=== PATIENT | female | born 1975 | race African-American/Black ===

== ENCOUNTER 2017-07-05 13:25 | Emergency (ER) | payer OTHER ==
[~2017-07-05] VITALS: Ht 162.6 cm; Wt 111.1 kg
[2017-07-05] MEDS ORDERED: IV NORMAL SALINE 1000ML BAG 1,000 ML IV SCH (15:03)
--- NOTE | 2017-07-05 15:09 | PHYS DOC ---
Past Medical History Past Medical History: Bronchitis, Hypertension, Hypothyroid Additional Past Medical Histor: MOOD DISORDER, ERYTHEMA MULTIFORME Past Surgical History: Cholecystectomy, Tubal ligation Additional Past Surgical Histo: PARTIAL HYSTERECTOMY, BILATERAL CARPAL TUNNEL SX Alcohol Use: None Drug Use: None Adult General Chief Complaint Chief Complaint: FLANK PAIN [facility] HPI Patient is a pleasant 42-year-old -[place] female 0-5 who does not have menstrual appears any longer secondary to partial hysterectomy and tubal ligation. She presents today with right lower quadrant abdominal pain that began 3-4 days ago. It is progressive and more localized in the right lower quadrant with subjective nausea without fever, chills or other symptoms. It is localized without radiation to the back or the other side of the abdomen. She denies any UTI symptoms, hematuria, urgency frequency or dysuria. She denies any travel outside the country isn't antibiotics or history of sexually transmitted diseases. Patient denies any vaginal bleeding or discharge. Denies any back pain, night sweats or weight loss. Patient also denies any chest pain, shortness of breath or other symptoms like peripheral edema or rashes. Patient is not had discomfort right lower quadrant in the past before. She has no gallbladder had a prior cholecystectomy such tubal ligation and a partial gastrectomy. She is allergic to Lipitor only pain is an 8 of 10 at this time. And is considered constant worse with position not changed with food or bowel movements. Review of Systems Review of Systems Constitutional: Denies fever or chills [] Eyes: Denies change in visual acuity, redness, or eye pain [] HENT: Denies nasal congestion or sore throat [] Respiratory: Denies cough or shortness of breath [] Cardiovascular: No additional information not addressed in HPI [] GI: Abdominal pain the right lower quadrant with nausea no vomiting diarrhea or bloody stools or constipation. : Denies dysuria or hematuria [] Musculoskeletal: Denies back pain or joint pain [] Integument: Denies rash or skin lesions [] Neurologic: Denies headache, focal weakness or sensory changes [] Endocrine: Denies polyuria or polydipsia [] Current Medications Current Medications Current Medications Medications (Trade) Dose Ordered Sig/Christoph Start Time Stop Time Status Last Admin Dose Admin Hydromorphone HCl (Dilaudid) 1 mg 1X ONCE 07/05/17 15:15 07/05/17 15:16 DC 07/05/17 15:30 1 MG Info (Do NOT chart on this entry -- for MONITORING) 1 each PRN DAILY PRN 07/05/17 15:15 07/07/17 15:14 Iohexol (Omnipaque 300 Mg/ml) 75 ml 1X ONCE 07/05/17 15:15 07/05/17 15:16 DC 07/05/17 16:25 75 ML Ondansetron HCl (Zofran) 4 mg 1X ONCE 07/05/17 15:15 07/05/17 15:16 DC 07/05/17 15:30 4 MG Sodium Chloride (Normal Saline Flush) 10 ml QSHIFT PRN 07/05/17 15:15 Allergies Allergies Allergies Coded Allergies Type Severity Reaction Last Updated Verified atorvastatin Allergy Intermediate Rash 07/05/17 Yes Physical Exam Physical Exam Vital signs recorded on the chart patient noted to be hypertensive which is chronic for patient. Constitutional: Well developed, well nourished, no acute distress, non-toxic appearance. [] HENT: Normocephalic, atraumatic, bilateral external ears normal, oropharynx moist, no oral exudates, nose normal. [] Eyes: PERRLA, EOMI, conjunctiva normal, no discharge. [] Neck: Normal range of motion, no tenderness, supple, no stridor. [] Cardiovascular:Heart rate regular rhythm, no murmur [] Lungs & Thorax: Bilateral breath sounds clear to auscultation [] Abdomen: Normal active bowel sounds with no guarding rebound or organomegaly. No Castorena's point tenderness to palpation. No Rovsing sign negative Orellana Plummer sign. She does have a positive McBurney's point tenderness to palpation Skin: Warm, dry, no erythema, no rash. [] Back: No tenderness, no CVA tenderness. [] Extremities: No tenderness, no cyanosis, no clubbing, ROM intact, no edema. [] Neurologic: Alert and oriented X 3, normal motor function, normal sensory function, no focal deficits noted. [] Psychologic: Affect normal, judgement normal, mood normal. [] Current Patient Data Vital Signs Vital Signs Date Time Temp Pulse Resp B/P (MAP) Pulse Ox O2 Delivery O2 Flow Rate FiO2 07/05/17 15:30 18 98 Room Air 10/16/17 13:47 98.2 62 151/95 (113) 98.2 Lab Values Laboratory Tests Test 07/05/17 13:30 07/05/17 15:40 Urine Collection Type Unknown Urine Color Yellow Urine Clarity Clear Urine pH 7.5 Urine Specific [place] 1.015 Urine Protein Negative mg/dL (NEG-TRACE) Urine Glucose (UA) Negative mg/dL (NEG) Urine Ketones (Stick) Negative mg/dL (NEG) Urine Blood Small (NEG) Urine Nitrite Negative (NEG) Urine Bilirubin Negative (NEG) Urine Urobilinogen Dipstick 1.0 mg/dL (0.2 mg/dL) Urine Leukocyte Esterase Small (NEG) Urine RBC 1-2 /HPF (0-2) Urine WBC Occ /HPF (0-4) Urine Squamous Epithelial Cells Many /LPF Urine Bacteria Few /HPF (0-FEW) Urine Mucus Mod /LPF Urine Trichomonas Present White Blood Count 6.5 x10^3/uL (4.0-11.0) Red Blood Count 4.14 x10^6/uL (3.50-5.40) Hemoglobin 13.6 g/dL (12.0-15.5) Hematocrit 39.7 % (36.0-47.0) Mean Corpuscular Volume 96 fL (79-100) Mean Corpuscular Hemoglobin 33 pg (25-35) Mean Corpuscular Hemoglobin Concent 34 g/dL (31-37) Red Cell Distribution Width 14.0 % (11.5-14.5) Platelet Count 238 x10^3/uL (140-400) Neutrophils (%) (Auto) 44 % (31-73) Lymphocytes (%) (Auto) 47 % (24-48) Monocytes (%) (Auto) 5 % (0-9) Eosinophils (%) (Auto) 3 % (0-3) Basophils (%) (Auto) 0 % (0-3) Neutrophils # (Auto) 2.8 x10^3uL (1.8-7.7) Lymphocytes # (Auto) 3.1 x10^3/uL (1.0-4.8) Monocytes # (Auto) 0.3 x10^3/uL (0.0-1.1) Eosinophils # (Auto) 0.2 x10^3/uL (0.0-0.7) Basophils # (Auto) 0.0 x10^3/uL (0.0-0.2) Sodium Level 140 mmol/L (136-145) Potassium Level 3.4 mmol/L (3.5-5.1) L Chloride Level 103 mmol/L (98-107) Carbon Dioxide Level 28 mmol/L (21-32) Anion Gap 9 (6-14) Blood Urea Nitrogen 11 mg/dL (7-20) Creatinine 0.9 mg/dL (0.6-1.0) Estimated GFR (Cockcroft-Gault) 83.1 BUN/Creatinine Ratio 12 (6-20) Glucose Level 83 mg/dL (70-99) Calcium Level 9.3 mg/dL (8.5-10.1) Total Bilirubin 0.9 mg/dL (0.2-1.0) Aspartate Amino Transferase (AST) 22 U/L (15-37) Alanine Aminotransferase (ALT) 26 U/L (14-59) Alkaline Phosphatase 41 U/L (46-116) L Creatine Kinase 360 U/L (26-192) H Creatine Kinase MB (Mass) 0.7 ng/mL (0.0-3.6) Creatine Kinase MB Relative Index 0.2 % (0-4) Troponin I Quantitative < 0.017 ng/mL (0.000-0.055) Total Protein 8.2 g/dL (6.4-8.2) Albumin 4.2 g/dL (3.4-5.0) Albumin/Globulin Ratio 1.1 (1.0-1.7) Lipase 173 U/L (73-393) Laboratory Tests 07/05/17 15:40 Laboratory Tests 07/05/17 15:40 EKG EKG []EKG timed 3:21 PM 07/05/2017 dosage heart rate of 52 which is sinus bradycardia with a PMD QRS there is no evidence of ST segment T-wave changes consistent with acute ischemia. Patient's NC intervals 180 which is normal QRS width is 80 which is normal QTC which is 370 which is normal. Aside heart rate this a normal EKG read by ok Radiology/Procedures Radiology/Procedures [] [facility] [address] [place] [address] IMAGING REPORT Signed PATIENT: NOE SHARIF ACCOUNT: [id number] : 1975 LOCATION: ER AGE: 42 SEX: F EXAM STATUS: REG ER ORD. PHYSICIAN: ADDY LUCAS MD REASON: right lower quadrant abdominal pain PROCEDURE: CT ABD PELV W/ IV CONTRST ONLY Indication right lower quadrant pain for 3 days. Axial images through the abdomen and pelvis were obtained. The examination was performed without oral contrast. Approximately 75 cc of Omnipaque 300 was administered intravenously. No prior imaging is available. The lung bases are clear. The liver and spleen appear unremarkable. Clips are noted in the gallbladder fossa. No pancreatic abnormality is seen. No adrenal or renal anomalies are seen. Acute finding in the abdomen is not apparent. In the pelvis the appendix is seen in the right lower quadrant and appears unremarkable. The right ovary is slightly enlarged. If ovarian pathology is clinically suspect ultrasound examination could be performed. No additional finding is seen. IMPRESSION: A definite acute or significant finding in the abdomen or pelvis is not seen. The right ovary appears slightly enlarged. If ovarian pathology is suspect and additional imaging evaluation is warranted an ultrasound examination could be performed. DICTATED and SIGNED BY: ALEKS SAHNI MD DATE: 07/05/171653 CC: ADDY LUCAS MD; NO PCP ~ Course & Med Decision Making Course & Med Decision Making Pertinent Labs and Imaging studies reviewed. (See chart for details) []My abdominal pain differential includes but not limited to ectopic , UTI, pyonephritis, cholecystitis, cholelithiasis, pancreatitis, appendicitis, small bowel obstruction, large bowel obstruction, diverticulosis, Diverticulum, intussusception, volvulus, irritable bowel disease, Crohn's or ulcerative colitis, considered upon arrival patient was given IV fluids antiemetics pain medications she'll belly exams while laboratory work is pending as well as CT abdomen and pelvis with IV contrast. Patient tells me that their symptoms given during CC are improved. Still waiting for radiology report of the CT abdomen and pelvis to replete. At this point time is now 4 PM laboratory work demonstrates no elevated white count, normal lipase normal LFTs and normal troponin with mild hypokalemia. Although not low enough to be causing symptoms. Time is now 5:[address] scan abdomen and pelvis shows no inter- abdominal pathology except a small right ovarian cyst. There is no evidence of appendicitis, small bowel section, UTI or pyonephritis at this time. Patient's urinalysis demonstrates slight with blood cells but also significant epithelial cells consistent with contaminant. We provided NSAIDs and pain medications for treatment of the suspected right ovarian cyst. There is no other obvious signs of appendicitis. Impression: Right lower abdominal pain likely secondary to right ovarian cyst. Patient given precautions about possible early appendicitis Dragon Disclaimer Dragon Disclaimer This electronic medical record was generated, in whole or in part, using a voice recognition dictation system. Departure Departure Impression: Primary Impression: Abdominal pain Additional Impression: Ovarian cyst Disposition: HOME, SELF-CARE Condition: IMPROVED Patient Instructions: Abdominal Pain, Ovarian Cyst Additional Instructions: My abdominal pain differential includes but not limited to ectopic , UTI, pyonephritis, cholecystitis, cholelithiasis, pancreatitis, appendicitis, small bowel obstruction, large bowel obstruction, diverticulosis, Diverticulum, intussusception, volvulus, irritable bowel disease, Crohn's or ulcerative colitis, considered upon arrival My discharge plan Follow up: In addition patient is asked to followup with their primary doctor, within a week for followup examination and to address patient's ongoing medical conditions. . Patient is advised that in the Emergency Department primary complaints are addressed and only in light of known signs and symptoms. Patient should return immediately to the emergency department if new signs and symptoms develop or patient's condition worsens in any way. At time of discharge patient was in stable condition and had verbalized understanding of the discharge instructions. Although there is no obvious evidence of appendicitis or intra-abdominal catastrophe at this time requiring surgical intervention or immediate medical management you could still develop these issues in the future. I would ask that you return immediately for any increasing symptoms question concerns. Scripts Naproxen (NAPROSYN) 500 Mg Tablet 1 TAB PO BID, #14 TAB 1 Refill Prov: ADDY LUCAS MD 07/05/17 Hydrocodone Bit/Acetaminophen (HYDROCODONE-APAP 5-325 ) 1 Each Tablet 1-2 TAB PO PRN Q6HRS Y for PAIN for 5 Days, #10 TAB 0 Refills Prov: ADDY LUCAS MD 07/05/17 Problem Qualifiers ADDY LUCAS MD Jul 05, 2017 15:09
[2017-07-05] MEDS ORDERED: 0.9 % SODIUM CHLORIDE 10 ML DISP.SYRIN. IV PRN (15:15)
[2017-07-05] MEDS ORDERED: HYDROmorphone 2 MG/ML VIAL IV ONE (15:15)
[2017-07-05] MEDS ORDERED: CONTRAST GIVEN MC PRN (15:15)
[2017-07-05] MEDS ORDERED: ONDANSETRON PF 4 MG/2 ML VIAL. IV ONE (15:15)
[2017-07-05] MEDS ORDERED: IOHEXOL 300 MG/ML 75 ML VIAL IV ONE (15:15)
[2017-07-05 15:25] LABS: BILIRUBIN,URINE NEGATIVE (NEG); GLUCOSE,URINE NEGATIVE (NEG); NITRITE,URINE NEGATIVE (NEG); PH,URINE 7.5; PROTEIN,URINE NEGATIVE (NEG-TRACE)
--- NOTE | 2017-07-05 15:45 | EKG ---
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
[2017-07-05 15:52] LABS: BASO % 0 % (0-3); EOS % 3 % (0-3); HEMATOCRIT 39.7 % (36.0-47.0); HEMOGLOBIN 13.6 g/dL (12.0-15.5); LYMPH # 3.1 x10^3/uL (1.0-4.8); LYMPH % 47 % (24-48); MEAN CORPUSCULAR HEMOGLOBIN 33 pg (25-35); MEAN CORPUSCULAR HGB CONC 34 g/dL (31-37); MEAN CORPUSCULAR VOLUME 96 fL (79-100); MONO % 5 % (0-9); NEUT % 44 % (31-73); PLATELET COUNT 238 x10^3/uL (140-400); RED BLOOD COUNT 4.14 x10^6/uL (3.50-5.40); WHITE BLOOD COUNT 6.5 x10^3/uL (4.0-11.0)
[2017-07-05 15:52] LABS: SQUAMOUS EPITHELIAL CELL,UR MANY /LPF
[2017-07-05 15:53] LABS: BACTERIA,URINE FEW /HPF (0-FEW); TRICHOMONAS,URINE PRESENT; WBC,URINE OCC /HPF (0-4)
[2017-07-05 16:04] LABS: CALCIUM 9.3 mg/dL (8.5-10.1); CREATININE 0.9 mg/dL (0.6-1.0); GFR 83.1; POTASSIUM 3.4 mmol/L (3.5-5.1)
[2017-07-05 16:06] LABS: ALBUMIN 4.2 g/dL (3.4-5.0); ALBUMIN/GLOBULIN RATIO 1.1 (1.0-1.7); TOTAL BILIRUBIN 0.9 mg/dL (0.2-1.0); TOTAL PROTEIN 8.2 g/dL (6.4-8.2)
[2017-07-05 16:14] LABS: CKMB MASS 0.7 ng/mL (0.0-3.6)
--- NOTE | 2017-07-05 17:08 | RAD ---
Indication right lower quadrant pain for 3 days. Axial images through the abdomen and pelvis were obtained. The examination was performed without oral contrast. Approximately 75 cc of Omnipaque 300 was administered intravenously. No prior imaging is available. The lung bases are clear. The liver and spleen appear unremarkable. Clips are noted in the gallbladder fossa. No pancreatic abnormality is seen. No adrenal or renal anomalies are seen. Acute finding in the abdomen is not apparent. In the pelvis the appendix is seen in the right lower quadrant and appears unremarkable. The right ovary is slightly enlarged. If ovarian pathology is clinically suspect ultrasound examination could be performed. No additional finding is seen. IMPRESSION: A definite acute or significant finding in the abdomen or pelvis is not seen. The right ovary appears slightly enlarged. If ovarian pathology is suspect and additional imaging evaluation is warranted an ultrasound examination could be performed.
[2017-07-05 17:15] VITALS: BP 154/85
[2017-07-05] MEDS ORDERED: NAPR500T PO (17:15)
[2017-07-05] MEDS ORDERED: HYDR-2758 PO (17:15)
== END 2017-07-05 17:36 | disposition home or self-care (01) ==
LOC: ER 13:25
DX: N83.201 Unspecified ovarian cyst, right side (principal); I10 Essential (primary) hypertension; E03.9 Hypothyroidism, unspecified; Z90.3 Acquired absence of stomach [part of]; Z90.49 Acquired absence of other specified parts of digestive tract; Z98.51 Tubal ligation status; Z90.711 Acquired absence of uterus with remaining cervical stump; Z88.8 Allergy status to other drugs, medicaments and biological substances
CPT/HCPCS: 36415; 74177; 80053; 81001; 82553; 83690; 84484; 85025; 87086; 93005; 96361; 96374; 96375; 99285; J1170; J2405; J7030; Q9967

== ENCOUNTER 2017-10-16 16:12 | Emergency (ER) | payer OTHER ==
[2017-10-16] MEDS: ONDANSETRON PF 4 MG/2 ML VIAL. IV ×2 (17:22)
[2017-10-16] MEDS: IV NORMAL SALINE 1000ML BAG 1,000 ML IV ×2 (17:22)
[2017-10-16] MEDS: MORPHINE SULFATE 10 MG/ML VIAL. IV ×2 (17:22)
[2017-10-16 17:51] LABS: INFLUENZA A PATIENT NEGATIVE (NEGATIVE); INFLUENZA B PATIENT NEGATIVE (NEGATIVE); OBC FLU VALID
== END 2017-10-16 19:43 | disposition home or self-care (01) ==
LOC: ER 16:12
DX: R50.9 Fever, unspecified (principal); R51 Headache; R05 Cough; R09.81 Nasal congestion; E03.9 Hypothyroidism, unspecified; I10 Essential (primary) hypertension; R11.2 Nausea with vomiting, unspecified; Z90.49 Acquired absence of other specified parts of digestive tract; Z98.51 Tubal ligation status; Z90.711 Acquired absence of uterus with remaining cervical stump; Z88.8 Allergy status to other drugs, medicaments and biological substances
CPT/HCPCS: 87804; 87804-59; 96361; 96374; 96375; 99285-25; J2270; J2405; J7030

== ENCOUNTER 2017-11-30 10:43 | Emergency (ER) | payer OTHER ==
[2017-11-30] MEDS: LIDO:MAALOX:DONNATAL 1:1:1 15 ML SINGLE DOSE SWSW (11:38)
[2017-11-30 12:01] LABS: NEGATIVE OBC STREP NEG; POSITIVE OBC STREP POS
== END 2017-11-30 11:42 | disposition home or self-care (01) ==
LOC: ER 10:43
DX: B00.2 Herpesviral gingivostomatitis and pharyngotonsillitis (principal); E03.9 Hypothyroidism, unspecified; I10 Essential (primary) hypertension; Z88.8 Allergy status to other drugs, medicaments and biological substances
CPT/HCPCS: 87070; 87880; 99283

== ENCOUNTER 2018-05-12 10:27 | Emergency (ER) | payer OTHER ==
[~2018-05-12] VITALS: Ht 162.6 cm; Wt 126.1 kg
[~2018-05-12 10:27] MED LIST: ACYC800T PO; HYDR-2758 PO; NAPR-683 PO
--- NOTE | 2018-05-12 10:41 | EKG ---
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
[2018-05-12] MEDS ORDERED: NITROGLYCERIN SUBLINGUAL 0.4 MG BOTTLE OF 25. SL PRN (10:45)
[2018-05-12] MEDS: ASPIRIN CHEWABLE 81 MG TABLET. PO ONE (11:05)
--- NOTE | 2018-05-12 11:10 | RAD ---
PORTABLE CHEST 1V History: CHEST PAIN Comparison: None. Findings: Single view of the chest is submitted. There is no infiltrate, pneumothorax, or effusion. The pericardial cardiac silhouette is within normal limits in size. Impression: 1. There is no evidence of acute cardiopulmonary disease. Electronically signed by: Vance Flores MD (05/12/2018 11:07 AM) [id number]
[2018-05-12 11:34] LABS: BASO % 0 % (0-3); EOS # 0.2 x10^3/uL (0.0-0.7); EOS % 4 % (0-3); HEMATOCRIT 34.7 % (36.0-47.0); LYMPH % 38 % (24-48); MEAN CORPUSCULAR HEMOGLOBIN 32 pg (25-35); MEAN CORPUSCULAR HGB CONC 35 g/dL (31-37); MEAN CORPUSCULAR VOLUME 93 fL (79-100); MONO # 0.2 x10^3/uL (0.0-1.1); MONO % 4 % (0-9); NEUT # 2.8 x10^3uL (1.8-7.7); NEUT % 53 % (31-73); PLATELET COUNT 219 x10^3/uL (140-400); RED BLOOD COUNT 3.72 x10^6/uL (3.50-5.40); RED CELL DISTRIBUTION WIDTH 12.3 % (11.5-14.5); WHITE BLOOD COUNT 5.3 x10^3/uL (4.0-11.0)
[2018-05-12 11:43] LABS: GFR 73.2; POTASSIUM 3.4 mmol/L (3.5-5.1)
[2018-05-12 11:45] LABS: PROTHROMBIN TIME PATIENT 12.6 SEC (11.7-14.0)
[2018-05-12 11:48] LABS: ALBUMIN 3.5 g/dL (3.4-5.0); ALBUMIN/GLOBULIN RATIO 0.9 (1.0-1.7); MAGNESIUM 1.7 mg/dL (1.8-2.4); TOTAL BILIRUBIN 0.6 mg/dL (0.2-1.0); TOTAL PROTEIN 7.2 g/dL (6.4-8.2)
[2018-05-12 11:53] LABS: D-DIMER 0.65 ug/mlFEU (0.00-0.50)
[2018-05-12] MEDS ORDERED: IOHEXOL 300 MG/ML 100ML VIAL. IV ONE (12:30)
[2018-05-12 12:38] LABS: BARBITURATES NEG (NEG); BENZODIAZEPINES NEG (NEG); CANNABINOIDS NEG (NEG); COCAINE NEG (NEG); METHADONE NEG (NEG); OPIATES NEG (NEG); PHENCYCLIDINE NEG (NEG)
[2018-05-12 12:41] LABS: AMPHETAMINE/METHAMPHETAMINE NEG (NEG)
[2018-05-12] MEDS ORDERED: CONTRAST GIVEN. MC PRN (12:45)
[2018-05-12] MEDS: KETOROLAC 60 MG/2 ML INJ. IM ONE (12:50)
[2018-05-12 12:56] LABS: CREATINE KINASE 271 U/L (26-192)
[2018-05-12] MEDS ORDERED: TRAM-48 PO (13:09)
--- NOTE | 2018-05-12 13:10 | PHYS DOC ---
Past Medical History Past Medical History: Bronchitis, High Cholesterol, Hypertension, Hypothyroid, Other Additional Past Medical Histor: MOOD DISORDER, ERYTHEMA MULTIFORME, HEADACHE Past Surgical History: Cholecystectomy, Tubal ligation, Other Additional Past Surgical Histo: PARTIAL HYSTERECTOMY, BILATERAL CARPAL TUNNEL SX Additional Information: Nonsmoker Alcohol Use: None Drug Use: None Adult General Chief Complaint Chief Complaint: CHEST PAIN [facility] HPI Patient is a 43 year old female who presents with complaining of chest pain. Patient complaining of substernal and right-sided chest pain intermittently for the last 1 week that usually happens several times a day without relation to activity or position as a sharp pain with addition to her back and associated with shortness of breath and dizziness without nausea, palpitation, fever and chills, cough and congestion. Patient states the pain lasts about 2 minutes and resolved spontaneously nose without taking any medication. Patient states her pain was more constant today and she decided to come to hospital. Patient had history of hypertension and dyslipidemia and family history of coronary artery disease without history of smoking or diabetes mellitus or previous heart attack. Patient rated her pain 7/10. Review of Systems Review of Systems Constitutional: Denies fever or chills [] Eyes: Denies change in visual acuity, redness, or eye pain [] HENT: Denies nasal congestion or sore throat [] Respiratory: Denies cough or shortness of breath [] Cardiovascular: No additional information not addressed in HPI [] GI: Denies abdominal pain, nausea, vomiting, bloody stools or diarrhea [] : Denies dysuria or hematuria [] Musculoskeletal: Denies back pain or joint pain [] Integument: Denies rash or skin lesions [] Neurologic: Denies headache, focal weakness or sensory changes [] Endocrine: Denies polyuria or polydipsia [] All other systems were reviewed and found to be within normal limits, except as documented in this note. Current Medications Current Medications Current Medications Medications (Trade) Dose Ordered Sig/Crhistoph Start Time Stop Time Status Last Admin Dose Admin Aspirin (Children'S Aspirin) 324 mg 1X ONCE 05/12/18 11:00 05/12/18 11:01 DC 05/12/18 11:05 324 MG Info (CONTRAST GIVEN -- Rx MONITORING) 1 each PRN DAILY PRN 05/12/18 12:45 05/12/18 13:36 DC Iohexol (Omnipaque 300 Mg/ml) 75 ml 1X ONCE 05/12/18 12:30 05/12/18 12:31 DC Ketorolac Tromethamine (Toradol Im) 60 mg 1X ONCE 05/12/18 12:45 05/12/18 12:46 DC 05/12/18 12:50 60 MG Nitroglycerin (Nitrostat) 0.4 mg PRN Q5MIN PRN 05/12/18 10:45 05/12/18 13:36 DC Allergies Allergies Allergies Coded Allergies Type Severity Reaction Last Updated Verified atorvastatin Allergy Intermediate Rash 07/05/17 Yes Physical Exam Physical Exam Constitutional: Well developed, well nourished, mild distress, non-toxic appearance. [] HENT: Normocephalic, atraumatic, oropharynx moist, no oral exudates, nose normal. [] Eyes: PERRLA, EOMI, conjunctiva normal, no discharge. [] Neck: Normal range of motion, no tenderness, supple, no stridor. [] Cardiovascular:Heart rate regular rhythm, no murmur [] Lungs & Thorax: Bilateral breath sounds clear to auscultation, reproducible substernal and right-sided chest pain [] Abdomen: Bowel sounds normal, soft, no tenderness, no masses, no pulsatile masses. [] Skin: Warm, dry, no erythema, no rash. [] Back: No tenderness, no CVA tenderness. [] Extremities: No tenderness, no cyanosis, no clubbing, ROM intact, no edema. [] Neurologic: Alert and oriented X 3, normal motor function, normal sensory function, no focal deficits noted. [] Psychologic: Affect normal, judgement normal, mood normal. [] Current Patient Data Vital Signs Vital Signs Date Time Temp Pulse Resp B/P (MAP) Pulse Ox O2 Delivery O2 Flow Rate FiO2 05/12/18 13:14 48 20 117/66 (83) 97 Room Air 05/12/18 10:30 98.6 98.6 Lab Values Laboratory Tests Test 05/12/18 11:20 05/12/18 12:12 White Blood Count 5.3 x10^3/uL (4.0-11.0) Red Blood Count 3.72 x10^6/uL (3.50-5.40) Hemoglobin 12.0 g/dL (12.0-15.5) Hematocrit 34.7 % (36.0-47.0) L Mean Corpuscular Volume 93 fL (79-100) Mean Corpuscular Hemoglobin 32 pg (25-35) Mean Corpuscular Hemoglobin Concent 35 g/dL (31-37) Red Cell Distribution Width 12.3 % (11.5-14.5) Platelet Count 219 x10^3/uL (140-400) Neutrophils (%) (Auto) 53 % (31-73) Lymphocytes (%) (Auto) 38 % (24-48) Monocytes (%) (Auto) 4 % (0-9) Eosinophils (%) (Auto) 4 % (0-3) H Basophils (%) (Auto) 0 % (0-3) Neutrophils # (Auto) 2.8 x10^3uL (1.8-7.7) Lymphocytes # (Auto) 2.0 x10^3/uL (1.0-4.8) Monocytes # (Auto) 0.2 x10^3/uL (0.0-1.1) Eosinophils # (Auto) 0.2 x10^3/uL (0.0-0.7) Basophils # (Auto) 0.0 x10^3/uL (0.0-0.2) Prothrombin Time 12.6 SEC (11.7-14.0) Prothrombin Time INR 1.0 (0.8-1.1) D-Dimer (Gabby) 0.65 ug/mlFEU (0.00-0.50) H Sodium Level 140 mmol/L (136-145) Potassium Level 3.4 mmol/L (3.5-5.1) L Chloride Level 106 mmol/L (98-107) Carbon Dioxide Level 27 mmol/L (21-32) Anion Gap 7 (6-14) Blood Urea Nitrogen 5 mg/dL (7-20) L Creatinine 1.0 mg/dL (0.6-1.0) Estimated GFR (Cockcroft-Gault) 73.2 BUN/Creatinine Ratio 5 (6-20) L Glucose Level 85 mg/dL (70-99) Calcium Level 9.0 mg/dL (8.5-10.1) Magnesium Level 1.7 mg/dL (1.8-2.4) L Total Bilirubin 0.6 mg/dL (0.2-1.0) Aspartate Amino Transferase (AST) 14 U/L (15-37) L Alanine Aminotransferase (ALT) 20 U/L (14-59) Alkaline Phosphatase 41 U/L (46-116) L Creatine Kinase 271 U/L (26-192) H Creatine Kinase MB (Mass) < 0.5 ng/mL (0.0-3.6) Creatine Kinase MB Relative Index % (0-4) Troponin I Quantitative < 0.017 ng/mL (0.000-0.055) PL-Bwc-Q-Type Natriuretic Peptide 63 pg/mL (0-124) Total Protein 7.2 g/dL (6.4-8.2) Albumin 3.5 g/dL (3.4-5.0) Albumin/Globulin Ratio 0.9 (1.0-1.7) L Lipase 144 U/L (73-393) Urine Opiates Screen Neg (NEG) Urine Methadone Screen Neg (NEG) Urine Barbiturates Neg (NEG) Urine Phencyclidine Screen Neg (NEG) Urine Amphetamine/Methamphetamine Neg (NEG) Urine Benzodiazepines Screen Neg (NEG) Urine Cocaine Screen Neg (NEG) Urine Cannabinoids Screen Neg (NEG) Urine Ethyl Alcohol Neg (NEG) Laboratory Tests 05/12/18 11:20 Laboratory Tests 05/12/18 11:20 EKG EKG EKG interpreted by me. EKG at 1035 showed normal sinus rhythm at rate of 62, abnormal TMs anteroseptal leads that was the same as EKG dated 07/19/2017, on acute ST and T-wave abnormalities.[] Radiology/Procedures Radiology/Procedures [[facility] [address] [place], [place] [id number] IMAGING REPORT Signed PATIENT: NOE SHARIF ACCOUNT: [id number] : 1975 LOCATION: ER AGE: 43 SEX: F EXAM STATUS: REG ER ORD. PHYSICIAN: WALLY GIBSON MD REASON: chest pain PROCEDURE: PORTABLE CHEST 1V PORTABLE CHEST 1V History: CHEST PAIN Comparison: None. Findings: Single view of the chest is submitted. There is no infiltrate, pneumothorax, or effusion. The pericardial cardiac silhouette is within normal limits in size. Impression: 1. There is no evidence of acute cardiopulmonary disease. Electronically signed by: Elder Flores MD (05/12/2018 11:07 AM) [id number] DICTATED and SIGNED BY: ELDER FLORES MD DATE: 05/12/18 1107 ] Course & Med Decision Making Course & Med Decision Making Pertinent Labs and Imaging studies reviewed. (See chart for details) Evolution of patient in ER showed 42-year-old female patient with complaining of intermittent episodes of substernal and right-sided chest pain. Patient did not have this factor for PE or dissection immobilization. She had reproducible right-sided chest pain and felt better after treatment in ER with Toradol. Patient had very mild elevation of d-dimer without concern for PE. Patient instructed to follow with her primary care physician and take pain medication prescribed in ER. [] Dragon Disclaimer Dragon Disclaimer This electronic medical record was generated, in whole or in part, using a voice recognition dictation system. Departure Departure Impression: Primary Impression: Musculoskeletal chest pain Additional Impressions: Hypomagnesemia Elevated liver enzymes D-dimer, elevated Disposition: 01 HOME, SELF-CARE (at 1307) Condition: IMPROVED Referrals: YANI ESPINOZA MD (PCP) Patient Instructions: Chest Wall Pain Additional Instructions: Drink plenty of liquids Follow-up with your primary care physician in 3-5 days Return to ER if not getting better Scripts Tramadol Hcl (ULTRAM) 50 Mg Tablet 50 MG PO Q6HRS PRN for PAIN, #20 TAB 0 Refills Prov: WALLY GIBSON MD 05/12/18 Problem Qualifiers WALLY GIBSON MD May 12, 2018 13:10
[2018-05-12 13:14] VITALS: BP 117/66
== END 2018-05-12 13:33 | disposition home or self-care (01) ==
LOC: ER 10:27
DX: R07.89 Other chest pain (principal); E83.42 Hypomagnesemia; R74.8 Abnormal levels of other serum enzymes; R79.1 Abnormal coagulation profile; E78.00 Pure hypercholesterolemia, unspecified; I10 Essential (primary) hypertension; E03.9 Hypothyroidism, unspecified; Z90.49 Acquired absence of other specified parts of digestive tract; Z90.710 Acquired absence of both cervix and uterus; Z98.51 Tubal ligation status; Z88.8 Allergy status to other drugs, medicaments and biological substances
CPT/HCPCS: 36415; 71045; 80053; 80307; 82553; 83690; 83735; 83880; 84484; 85025; 85379; 85610; 93005; 96372; 99285; J1885; G0479

== ENCOUNTER 2018-09-12 04:36 | Emergency (ER) | payer OTHER ==
[~2018-09-12] VITALS: Ht 162.6 cm; Wt 131.1 kg
[~2018-09-12 04:36] MED LIST changes: -HYDR-2758 PO; +HYDR-2761 PO; +TRAM-48 PO
--- NOTE | 2018-09-12 05:08 | PHYS DOC ---
Past Medical History Past Medical History: Bronchitis, High Cholesterol, Hypertension, Hypothyroid, Other Additional Past Medical Histor: MOOD DISORDER, ERYTHEMA MULTIFORME, HEADACHE Past Surgical History: Cholecystectomy, Tubal ligation, Other Additional Past Surgical Histo: PARTIAL HYSTERECTOMY, BILATERAL CARPAL TUNNEL SX Alcohol Use: None Drug Use: None Adult General Chief Complaint Chief Complaint: LOWER EXT PAIN HPI HPI Patient is a 43 year old female who presents with left lower extremity pain. This is been present for the past month. It was initially in the proximal lateral thigh but now has extended distally still in the lateral thigh. There is been no new leg swelling. No PE risk factors. No trauma. Patient is able to ambulate. Nothing seems to make the discomfort worse. Ibuprofen does seem to make it a little bit better. Pain is mild to moderate in intensity. There is no shortness of breath.[] Review of Systems Review of Systems Constitutional: Denies fever or chills [] Eyes: Denies change in visual acuity, redness, or eye pain [] HENT: Denies nasal congestion or sore throat [] Respiratory: Denies cough or shortness of breath [] Cardiovascular: No chest pain or palpitations[] GI: Denies abdominal pain, nausea, vomiting, bloody stools or diarrhea [] : Denies dysuria or hematuria [] Musculoskeletal: See history of present illness[] Integument: Denies rash or skin lesions [] Neurologic: Denies headache, focal weakness or sensory changes [] Endocrine: Denies polyuria or polydipsia [] All other systems were reviewed and found to be within normal limits, except as documented in this note. Current Medications Current Medications Current Medications Medications (Trade) Dose Ordered Sig/Christoph Start Time Stop Time Status Last Admin Dose Admin Ketorolac Tromethamine (Toradol 15mg Vial) 15 mg 1X ONCE 09/12/18 06:00 09/12/18 06:01 DC Ketorolac Tromethamine (Toradol Im) 15 mg 1X ONCE 09/12/18 06:00 09/12/18 06:00 DC Allergies Allergies Allergies Coded Allergies Type Severity Reaction Last Updated Verified atorvastatin Allergy Intermediate Rash 07/05/17 Yes Physical Exam Physical Exam Constitutional: Well developed, well nourished, no acute distress, non-toxic appearance. [] HENT: Normocephalic, atraumatic, bilateral external ears normal, oropharynx moist, no oral exudates, nose normal. [] Eyes: PERRLA, EOMI, conjunctiva normal, no discharge. [] Neck: Normal range of motion, no tenderness, supple, no stridor. [] Cardiovascular:Heart rate regular rhythm, no murmur [] Lungs & Thorax: Bilateral breath sounds clear to auscultation [] Abdomen: Bowel sounds normal, soft, no tenderness, no masses, no pulsatile masses. [] Skin: Warm, dry, no erythema, no rash. [] Back: No tenderness, no CVA tenderness. [] Extremities: tenderness of the lateral thigh. Full active range of motion. Patient is distal neurovascularly intact. Normal gait, no cyanosis, no clubbing , ROM intact, no edema. [] Neurologic: Alert and oriented X 3, normal motor function, normal sensory function, no focal deficits noted. [] Psychologic: Affect normal, judgement normal, mood normal. [] Current Patient Data Vital Signs Vital Signs Date Time Temp Pulse Resp B/P (MAP) Pulse Ox O2 Delivery O2 Flow Rate FiO2 09/12/18 04:57 98.6 78 18 170/76 (107) 100 Room Air 98.6 Lab Values Laboratory Tests Test 09/12/18 06:37 White Blood Count 4.9 x10^3/uL (4.0-11.0) Red Blood Count 3.84 x10^6/uL (3.50-5.40) Hemoglobin 12.9 g/dL (12.0-15.5) Hematocrit 36.6 % (36.0-47.0) Mean Corpuscular Volume 95 fL (79-100) Mean Corpuscular Hemoglobin 34 pg (25-35) Mean Corpuscular Hemoglobin Concent 35 g/dL (31-37) Red Cell Distribution Width 12.9 % (11.5-14.5) Platelet Count 263 x10^3/uL (140-400) Neutrophils (%) (Auto) 54 % (31-73) Lymphocytes (%) (Auto) 36 % (24-48) Monocytes (%) (Auto) 7 % (0-9) Eosinophils (%) (Auto) 2 % (0-3) Basophils (%) (Auto) 1 % (0-3) Neutrophils # (Auto) 2.6 x10^3uL (1.8-7.7) Lymphocytes # (Auto) 1.8 x10^3/uL (1.0-4.8) Monocytes # (Auto) 0.3 x10^3/uL (0.0-1.1) Eosinophils # (Auto) 0.1 x10^3/uL (0.0-0.7) Basophils # (Auto) 0.0 x10^3/uL (0.0-0.2) Prothrombin Time 12.3 SEC (11.7-14.0) Prothrombin Time INR 0.9 (0.8-1.1) Sodium Level 139 mmol/L (136-145) Potassium Level 3.4 mmol/L (3.5-5.1) L Chloride Level 102 mmol/L (98-107) Carbon Dioxide Level 27 mmol/L (21-32) Anion Gap 10 (6-14) Blood Urea Nitrogen 18 mg/dL (7-20) Creatinine 1.3 mg/dL (0.6-1.0) H Estimated GFR (Cockcroft-Gault) 54.1 Glucose Level 88 mg/dL (70-99) Calcium Level 9.2 mg/dL (8.5-10.1) Magnesium Level 1.7 mg/dL (1.8-2.4) L Laboratory Tests 09/12/18 06:37 Laboratory Tests 09/12/18 06:37 EKG EKG [] Radiology/Procedures Radiology/Procedures Left lower extremity ultrasound showed no evidence of DVT[] PROCEDURE: VENOUS LOWER EXTREMITY LEFT Ultrasound venous system of the left lower extremity 09/12/2018. Reason for exam: Thigh pain. No known injury. Color Doppler and spectral waveform analysis was performed along with real-time grayscale technique. The deep venous system of the left lower extremity shows normal compressibility and normal Doppler flow and augmentation of flow extending from the common femoral segment to the popliteal segment. The visualized calf veins also appear normal. IMPRESSION: No evidence of DVT. Course & Med Decision Making Course & Med Decision Making Pertinent Labs and Imaging studies reviewed. (See chart for details) ED course: Patient arrived, was placed in bed, in tolerated exam well. Patient did receive pain medication. Patient care endorsed to Dr. Turcios at 6 AM with laboratory testing pending to assess for electrolyte abnormalities that may be salty beating to the patient's discomfort. Medical decision making: There is no evidence of DVT. Electrolyte abnormalities are pending return of laboratory testing[] 7:40 AM: The patient's condition remains stable. She was reexamined at this time. She has been complaining of pain in her left lateral thigh for about a month or so. She states she has seen her PCPs which might have a pinched nerve. She denies any incontinence, muscle weakness, although she does report some generalized decreased sensation along the left lateral aspect of her leg. Lateral femoral cutaneous nerve syndrome is also in the differential. She has normal pulses in her leg normal range of motion in all muscle strength. The skin is normal there is no evidence of any soft tissue abnormality on exam, other than some diffuse tenderness to palpation to the soft tissues of her left thigh. I discussed test results with the patient, the need for close follow-up with her PCP, home care plan, and return precautions. Dragon Disclaimer Dragon Disclaimer This electronic medical record was generated, in whole or in part, using a voice recognition dictation system. Departure Departure Impression: Primary Impression: Left leg pain Disposition: HOME, SELF-CARE Condition: STABLE Referrals: YANI ESPINOZA MD (PCP) Patient Instructions: Leg Cramps, Lumbosacral Radiculopathy, Musculoskeletal Pain Additional Instructions: Ibuprofen 400-600 mg every 6 hours may help improve your symptoms. Applying a heating pad to the affected area may help improve your symptoms. The prescribed medications may cause drowsiness-use caution while taking. Scripts Cyclobenzaprine Hcl (CYCLOBENZAPRINE HCL) 10 Mg Tablet 1 TAB PO TID PRN for PAIN, #30 TAB Prov: CARO TURCIOS MD 09/12/18 KHLOE RAINES DO Sep 12, 2018 05:07 CARO TURCIOS MD Sep 12, 2018 07:45
[2018-09-12] MEDS ORDERED: KETOROLAC 15 MG/ML VIAL. IV ONE (05:30)
[2018-09-12] MEDS ORDERED: KETOROLAC 15 MG/ML VIAL. IM ONE ×2 (06:00)
[2018-09-12] MEDS ORDERED: KETOROLAC 60 MG/2 ML VIAL. IM ONE (06:00)
--- NOTE | 2018-09-12 06:13 | RAD ---
Ultrasound venous system of the left lower extremity 09/12/2018. Reason for exam: Thigh pain. No known injury. Color Doppler and spectral waveform analysis was performed along with real-time grayscale technique. The deep venous system of the left lower extremity shows normal compressibility and normal Doppler flow and augmentation of flow extending from the common femoral segment to the popliteal segment. The visualized calf veins also appear normal. IMPRESSION: No evidence of DVT. Electronically signed by: Roosevelt Darby Jr., MD (09/12/2018 6:10 AM) [facility]
[2018-09-12 06:50] LABS: BASO % 1 % (0-3); EOS # 0.1 x10^3/uL (0.0-0.7); EOS % 2 % (0-3); HEMATOCRIT 36.6 % (36.0-47.0); HEMOGLOBIN 12.9 g/dL (12.0-15.5); LYMPH # 1.8 x10^3/uL (1.0-4.8); LYMPH % 36 % (24-48); MEAN CORPUSCULAR HEMOGLOBIN 34 pg (25-35); MEAN CORPUSCULAR HGB CONC 35 g/dL (31-37); MEAN CORPUSCULAR VOLUME 95 fL (79-100); MONO # 0.3 x10^3/uL (0.0-1.1); MONO % 7 % (0-9); NEUT # 2.6 x10^3uL (1.8-7.7); NEUT % 54 % (31-73); PLATELET COUNT 263 x10^3/uL (140-400); RED BLOOD COUNT 3.84 x10^6/uL (3.50-5.40); RED CELL DISTRIBUTION WIDTH 12.9 % (11.5-14.5); WHITE BLOOD COUNT 4.9 x10^3/uL (4.0-11.0)
[2018-09-12 06:56] LABS: PROTHROMBIN TIME PATIENT 12.3 SEC (11.7-14.0)
[2018-09-12 07:02] LABS: CALCIUM 9.2 mg/dL (8.5-10.1); CREATININE 1.3 mg/dL (0.6-1.0); GFR 54.1; MAGNESIUM 1.7 mg/dL (1.8-2.4); POTASSIUM 3.4 mmol/L (3.5-5.1)
[2018-09-12] MEDS ORDERED: CYCL10TA2 PO (07:45)
[2018-09-12 07:54] VITALS: BP 128/73
== END 2018-09-12 07:57 | disposition home or self-care (01) ==
LOC: ER 04:36
DX: M79.605 Pain in left leg (principal); E78.00 Pure hypercholesterolemia, unspecified; I10 Essential (primary) hypertension; E03.9 Hypothyroidism, unspecified; Z90.49 Acquired absence of other specified parts of digestive tract; Z98.51 Tubal ligation status; Z90.710 Acquired absence of both cervix and uterus; Z88.8 Allergy status to other drugs, medicaments and biological substances
CPT/HCPCS: 36415; 80048; 83735; 85025; 85610; 93971; 96372; 99284; J1885

== ENCOUNTER 2018-12-24 10:02 | Emergency (ER) | payer OTHER ==
[~2018-12-24] VITALS: Ht 162.6 cm; Wt 131.1 kg
[~2018-12-24 10:02] MED LIST changes: +CYCL10TA2 PO
[2018-12-24 10:38] LABS: BILIRUBIN,URINE NEGATIVE (NEG); CLARITY,URINE CLEAR; COLOR,URINE YELLOW; NITRITE,URINE NEGATIVE (NEG); PROTEIN,URINE NEGATIVE (NEG-TRACE)
[2018-12-24 10:45] LABS: BACTERIA,URINE 0 /HPF (0-FEW); RBC,URINE OCC /HPF (0-2); WBC,URINE OCC /HPF (0-4)
[2018-12-24 10:46] LABS: SQUAMOUS EPITHELIAL CELL,UR FEW /LPF
[2018-12-24 10:52] LABS: BASO % 1 % (0-3); EOS # 0.1 x10^3/uL (0.0-0.7); EOS % 4 % (0-3); HEMATOCRIT 37.9 % (36.0-47.0); HEMOGLOBIN 12.6 g/dL (12.0-15.5); LYMPH # 1.8 x10^3/uL (1.0-4.8); LYMPH % 52 % (24-48); MEAN CORPUSCULAR HEMOGLOBIN 31 pg (25-35); MEAN CORPUSCULAR HGB CONC 33 g/dL (31-37); MEAN CORPUSCULAR VOLUME 94 fL (79-100); MONO # 0.2 x10^3/uL (0.0-1.1); MONO % 7 % (0-9); NEUT # 1.3 x10^3uL (1.8-7.7); NEUT % 37 % (31-73); PLATELET COUNT 270 x10^3/uL (140-400); RED BLOOD COUNT 4.05 x10^6/uL (3.50-5.40); RED CELL DISTRIBUTION WIDTH 12.9 % (11.5-14.5); WHITE BLOOD COUNT 3.5 x10^3/uL (4.0-11.0)
[2018-12-24] MEDS ORDERED: LIDO:MAALOX 1:1 20 ML SINGLE DOSE. SWSW ONE (11:00)
[2018-12-24] MEDS ORDERED: FAMOTIDINE 20 MG TABLET. PO ONE (11:00)
[2018-12-24] MEDS ORDERED: KETOROLAC 60 MG/2 ML VIAL. IM ONE (11:00)
--- NOTE | 2018-12-24 11:01 | PHYS DOC ---
Past Medical History Past Medical History: Bronchitis, GERD, High Cholesterol, Hypertension, Hypothyroid, Other Additional Past Medical Histor: MOOD DISORDER, ERYTHEMA MULTIFORME, HEADACHE (IVETT ONEAL APRN) Past Surgical History: Cholecystectomy, Tubal ligation, Other Additional Past Surgical Histo: PARTIAL HYSTERECTOMY, BILATERAL CARPAL TUNNEL SX (IVETT ONEAL APRN) Alcohol Use: None Drug Use: None (IVETT ONEAL APRN) Adult General Chief Complaint Chief Complaint: MULTIPLE COMPLAINTS HPI HPI Patient is a 43 year old female with history of hypertension, high cholesterol , acid reflex, who presents to the ED today concerned about vaginal bleeding. Patient states she wiped herself this morning and noted some pinkish blood on the toilet paper. Patient states she's had a hysterectomy with removal of the uterus and cervix and should not be bleeding. Patient denies any concerns for STDs. She is also complaining of a chronic mild generalized headache she states she follows up with the neurologist for this, she states they have her scheduled for an MRI next week. Patient denies any vision changes, denies any nausea vomiting. Denies anything unusual about her headache today. She is also complaining of acid reflex. She states she's had it for years. She states she did not take anything this morning for her acid reflex. (IVETT ONEAL APRN) Review of Systems Review of Systems Constitutional: Denies fever or chills [] Eyes: Denies change in visual acuity, redness, or eye pain [] HENT: Denies nasal congestion or sore throat [] Respiratory: Denies cough or shortness of breath [] Cardiovascular: No additional information not addressed in HPI [] GI: Reports vaginal bleeding. Reports acid reflex. Denies a nausea, vomiting, bloody stools or diarrhea [] : Denies dysuria or hematuria [] Musculoskeletal: Denies back pain or joint pain [] Integument: Denies rash or skin lesions [] Neurologic: Reports headache, denies focal weakness or sensory changes [] All other systems were reviewed and found to be within normal limits, except as documented in this note. (IVETT ONEAL APRN) Current Medications Current Medications Current Medications Medications (Trade) Dose Ordered Sig/Christoph Start Time Stop Time Status Last Admin Dose Admin Acetaminophen/ Hydrocodone Bitart (Lortab 5/325) 2 tab 1X ONCE 12/24/18 13:00 12/24/18 13:01 DC 12/24/18 13:06 2 TAB Famotidine (Pepcid) 20 mg 1X ONCE 12/24/18 11:00 12/24/18 11:01 DC 12/24/18 11:16 20 MG Ketorolac Tromethamine (Toradol Im) 60 mg 1X ONCE 12/24/18 11:00 12/24/18 11:01 DC 12/24/18 11:16 60 MG Multi-Ingredient Mouthwash/Gargle (Gi Cocktail) 20 ml 1X ONCE 12/24/18 11:00 12/24/18 11:01 DC 12/24/18 11:16 20 ML (SRIDEVI MAR MD) Allergies Allergies Allergies Coded Allergies Type Severity Reaction Last Updated Verified atorvastatin Allergy Intermediate Rash 07/05/17 Yes (SRIDEVI MAR MD) Physical Exam Physical Exam Constitutional: Well developed, well nourished, no acute distress, non-toxic appearance. [] HENT: Normocephalic, atraumatic, bilateral external ears normal, oropharynx moist, no oral exudates, nose normal. [] Eyes: PERRLA, EOMI, conjunctiva normal, no discharge. [] Neck: Normal range of motion, no tenderness, supple, no stridor. [] Cardiovascular:Heart rate regular rhythm, no murmur [] Lungs & Thorax: Bilateral breath sounds clear to auscultation [] Abdomen: Bowel sounds normal, soft, no tenderness, no masses, no pulsatile masses. [] Pelvic exam External pelvic appears normal, cervix not visualized. Trace amount of brownish discharge in the vaginal vault. No CMT, no adnexal tenderness. Skin: Warm, dry, no erythema, no rash. [] Back: No tenderness, no CVA tenderness. [] Extremities: No tenderness, no cyanosis, no clubbing, ROM intact, no edema. [] Neurologic: Alert and oriented X 3, normal motor function, normal sensory function, no focal deficits noted. Cranial nerves II through XII intact. Psychologic: Affect normal, judgement normal, mood normal. [] (IVETT ONEAL APRN) Current Patient Data Vital Signs Vital Signs Date Time Temp Pulse Resp B/P (MAP) Pulse Ox O2 Delivery O2 Flow Rate FiO2 4/6/19 13:08 136/72 (93) 12/24/18 13:06 18 100 Room Air 12/24/18 10:20 98.6 62 98.6 (SRIDEVI MAR MD) Lab Values Laboratory Tests Test 12/24/18 10:15 12/24/18 10:27 12/24/18 10:40 Urine Collection Type Unknown Urine Color Yellow Urine Clarity Clear Urine pH 7.0 Urine Specific Dorothy 1.010 Urine Protein Negative mg/dL (NEG-TRACE) Urine Glucose (UA) Negative mg/dL (NEG) Urine Ketones (Stick) Negative mg/dL (NEG) Urine Blood Moderate (NEG) Urine Nitrite Negative (NEG) Urine Bilirubin Negative (NEG) Urine Urobilinogen Dipstick 1.0 mg/dL (0.2 mg/dL) Urine Leukocyte Esterase Trace (NEG) Urine RBC Occ /HPF (0-2) Urine WBC Occ /HPF (0-4) Urine Squamous Epithelial Cells Few /LPF Urine Bacteria 0 /HPF (0-FEW) Urine Mucus Slight /LPF Urine Opiates Screen Neg (NEG) Urine Methadone Screen Neg (NEG) Urine Barbiturates Neg (NEG) Urine Phencyclidine Screen Neg (NEG) Urine Amphetamine/Methamphetamine Neg (NEG) Urine Benzodiazepines Screen Neg (NEG) Urine Cocaine Screen Neg (NEG) Urine Cannabinoids Screen Neg (NEG) Urine Ethyl Alcohol Neg (NEG) POC Urine HCG, Qualitative Hcg negative (Negative) White Blood Count 3.5 x10^3/uL (4.0-11.0) L Red Blood Count 4.05 x10^6/uL (3.50-5.40) Hemoglobin 12.6 g/dL (12.0-15.5) Hematocrit 37.9 % (36.0-47.0) Mean Corpuscular Volume 94 fL (79-100) Mean Corpuscular Hemoglobin 31 pg (25-35) Mean Corpuscular Hemoglobin Concent 33 g/dL (31-37) Red Cell Distribution Width 12.9 % (11.5-14.5) Platelet Count 270 x10^3/uL (140-400) Neutrophils (%) (Auto) 37 % (31-73) Lymphocytes (%) (Auto) 52 % (24-48) H Monocytes (%) (Auto) 7 % (0-9) Eosinophils (%) (Auto) 4 % (0-3) H Basophils (%) (Auto) 1 % (0-3) Neutrophils # (Auto) 1.3 x10^3uL (1.8-7.7) L Lymphocytes # (Auto) 1.8 x10^3/uL (1.0-4.8) Monocytes # (Auto) 0.2 x10^3/uL (0.0-1.1) Eosinophils # (Auto) 0.1 x10^3/uL (0.0-0.7) Basophils # (Auto) 0.0 x10^3/uL (0.0-0.2) Sodium Level 142 mmol/L (136-145) Potassium Level 4.6 mmol/L (3.5-5.1) Chloride Level 105 mmol/L (98-107) Carbon Dioxide Level 30 mmol/L (21-32) Anion Gap 7 (6-14) Blood Urea Nitrogen 6 mg/dL (7-20) L Creatinine 1.1 mg/dL (0.6-1.0) H Estimated GFR (Cockcroft-Gault) 65.6 BUN/Creatinine Ratio 5 (6-20) L Glucose Level 97 mg/dL (70-99) Calcium Level 9.0 mg/dL (8.5-10.1) Total Bilirubin 0.5 mg/dL (0.2-1.0) Aspartate Amino Transferase (AST) 14 U/L (15-37) L Alanine Aminotransferase (ALT) 18 U/L (14-59) Alkaline Phosphatase 45 U/L (46-116) L Total Protein 7.5 g/dL (6.4-8.2) Albumin 3.7 g/dL (3.4-5.0) Albumin/Globulin Ratio 1.0 (1.0-1.7) Lipase 142 U/L (73-393) Ethyl Alcohol Level < 10 mg/dL (0-10) Laboratory Tests 12/24/18 10:40 Laboratory Tests 12/24/18 10:40 Microbiology 12/24/18 Urine Culture - Final, Complete 12/24/18 Urine Culture Result 1 (RADHA) - Final, Complete (SRIDEVI MAR MD) EKG EKG [] (IVETT ONEAL APRN) Radiology/Procedures Radiology/Procedures [] (IVETT ONEAL APRN) Course & Med Decision Making Course & Med Decision Making Pertinent Labs and Imaging studies reviewed. (See chart for details) This is a 43-year-old female patient presenting to the ED today complaining of vaginal bleeding that began today, pelvic exam she is noted for supporting. She' s had a partial hysterectomy. She is also complaining of a headache-chronic in nature. Also complained of acid reflex-chronic in nature. CBC with a WBC of 3.5. Hemoglobin and hematocrit are normal. Urine analysis is noted for trace amount of leukocytes, moderate amount of blood. CMP with no acute findings. CT of the abdomen and pelvic was negative for any acute findings. Patient was discharged to home. Instructed to follow-up with her neurologist, she has an appointment on Wednesday, she states she has a scheduled an MRI on that day. She states the neurologist already started her on a new medicine for her chronic headaches. (IVETT ONEAL APRN) Course & Med Decision Making Staff Physician Addendum: I was working in the ER during the course of this patient's visit. I was available for consultation as needed, but I was not directly involved in the care of this patient. (SRIDEVI MAR MD) Dragon Disclaimer Dragon Disclaimer This electronic medical record was generated, in whole or in part, using a voice recognition dictation system. (IVETT ONEAL APRN) Departure Departure Impression: Primary Impression: Vaginal bleeding Additional Impressions: GERD (gastroesophageal reflux disease) Headache Disposition: HOME, SELF-CARE Condition: STABLE Referrals: YANI ESPINOZA MD (PCP) follow up next week Patient Instructions: Headache, FAQs Additional Instructions: You were evaluated in the emergency room for headache, vaginal bleeding and acid reflex we could not find any acute cause of your symptoms. Please continue following up with your neurologist and primary care doctor. Also consider seeing your OBGYN. Problem Qualifiers Additional Impressions: GERD (gastroesophageal reflux disease) Esophagitis presence: esophagitis presence not specified Qualified Codes: K21.9 - Gastro-esophageal reflux disease without esophagitis Headache Headache type: unspecified Headache chronicity pattern: unspecified pattern Intractability: not intractable Qualified Codes: R51 - Headache IVETT ONEAL APRN Dec 24, 2018 11:01 SRIDEVI MAR MD Dec 31, 2018 20:13
[2018-12-24 11:03] LABS: CREATININE 1.1 mg/dL (0.6-1.0); GFR 65.6; POTASSIUM 4.6 mmol/L (3.5-5.1)
[2018-12-24 11:12] LABS: ALBUMIN 3.7 g/dL (3.4-5.0); TOTAL BILIRUBIN 0.5 mg/dL (0.2-1.0); TOTAL PROTEIN 7.5 g/dL (6.4-8.2)
[2018-12-24 11:24] LABS: AMPHETAMINE/METHAMPHETAMINE NEG (NEG); BARBITURATES NEG (NEG); BENZODIAZEPINES NEG (NEG); CANNABINOIDS NEG (NEG); COCAINE NEG (NEG); METHADONE NEG (NEG); OPIATES NEG (NEG); PHENCYCLIDINE NEG (NEG)
--- NOTE | 2018-12-24 12:25 | RAD ---
CT Abdomen; CT Pelvis without contrast INDICATION: epigastric abdominal pain, vaginal bleeding COMPARISON: CT abdomen and pelvis dated 07/05/2017 TECHNIQUE: Multiple contiguous axial images were obtained throughout the abdomen, and pelvis without the use of IV contrast. Axial images were reformatted into coronal and sagittal planes. FINDINGS: Abdomen findings: Evaluation of solid abdominal viscera is limited without the use of IV contrast. However, the liver, spleen, pancreas, and adrenal glands are unremarkable. Cholecystectomy. The kidneys are unremarkable. There is no significant mesenteric or retroperitoneal adenopathy identified, though evaluation is limited without intravenous contrast. There is no evidence of free intraperitoneal fluid or pneumoperitoneum. Visualized portions of the bowel are grossly unremarkable. Normal appendix. Small fat-containing umbilical hernia. Pelvis findings: The bladder and distal ureters are unremarkable. Hysterectomy. Normal-appearing bilateral ovaries. There is no significant pelvic ascites. No significant iliac or inguinal adenopathy is identified. No acute osseous abnormality. Mild multilevel degenerative changes of the visualized spine. IMPRESSION: No acute intra-abdominal or intrapelvic process. Electronically signed by: Dick Villagomez MD (12/24/2018 12:22 PM) [facility]
[2018-12-24] MEDS ORDERED: HYDROcodone/APAP 5/325MG 1 TAB TABLET PO ONE (13:00)
[2018-12-24 13:08] VITALS: BP 136/72
== END 2018-12-24 13:09 | disposition home or self-care (01) ==
LOC: ER 10:02
DX: N93.9 Abnormal uterine and vaginal bleeding, unspecified (principal); R51 Headache; K21.9 Gastro-esophageal reflux disease without esophagitis; E78.00 Pure hypercholesterolemia, unspecified; I10 Essential (primary) hypertension; E03.9 Hypothyroidism, unspecified; Z90.711 Acquired absence of uterus with remaining cervical stump; Z90.49 Acquired absence of other specified parts of digestive tract; Z98.51 Tubal ligation status; Z88.8 Allergy status to other drugs, medicaments and biological substances
CPT/HCPCS: 36415; 74176; 80053; 80307; 81001; 81025; 83690; 85025; 87086; 96372; 99284; G0480; J1885

== ENCOUNTER 2020-03-12 19:39 | Emergency (ER) | payer MEDICAID, OTHER ==
[~2020-03-12] VITALS: Ht 162.6 cm; Wt 132.0 kg
[2020-03-12 21:30] VITALS: BP 147/94
--- NOTE | 2020-03-12 21:56 | PHYS DOC ---
Past Medical History Past Medical History: Bronchitis, High Cholesterol, Hypertension, Hypothyroid, Other Additional Past Medical Histor: MOOD DISORDER, ERYTHEMA MULTIFORME, HEADACHE Past Surgical History: Cholecystectomy, Tubal ligation, Other Additional Past Surgical Histo: PARTIAL HYSTERECTOMY, BILATERAL CARPAL TUNNEL SX Smoking Status: Never Smoker Alcohol Use: None Drug Use: None General Adult EDM: Chief Complaint: EYE PROBLEMS HPI: HPI: Patient is a 45 year old female who presents with complaint of bilateral eye irritation after accidentally using some of her anti-infective eardrops in her eyes. She states that she knows that it was for infection but she does not know what the medication was. She indicates that initially she had a little bit of blurring to her vision and some photophobia earlier in the day. She states that a lot of the irritation has improved but she still has some itching. She states that she does not have anyone who can check and see what the medication was. [] Review of Systems: Review of Systems: Constitutional: Denies fever or chills. [] Eyes: Complains of bilateral eye irritation, itching and blurred vision that has improved. [] Respiratory: Denies cough or shortness of breath. [] Cardiovascular: Denies chest pain or edema. [] Integument: Denies rash. [] Neurologic: Denies headache, focal weakness or sensory changes. [] Heart Score: Risk Factors: Risk Factors: DM, Current or recent (<one month) smoker, HTN, HLP, family history of CAD, obesity. Risk Scores: Score 0 - 3: 2.5% MACE over next 6 weeks - Discharge Home Score 4 - 6: 20.3% MACE over next 6 weeks - Admit for Clinical Observation Score 7 - 10: 72.7% MACE over next 6 weeks - Early Invasive Strategies Allergies: Allergies: Allergies Coded Allergies Type Severity Reaction Last Updated Verified atorvastatin Allergy Intermediate Rash 07/05/17 Yes Physical Exam: PE: Constitutional: Well developed, well nourished, no acute distress, non-toxic appearance. [] Eyes: PERRLA, EOMI, sclerae are normal with mild conjunctival injection, no discharge. [] Cardiovascular: Regular rate and rhythm [] Lungs & Thorax: Bilateral breath sounds clear to auscultation [] Skin: Warm, dry, no erythema, no rash. [] Current Patient Data: Vital Signs: Vital Signs Date Time Temp Pulse Resp B/P (MAP) Pulse Ox O2 Delivery O2 Flow Rate FiO2 03/12/20 21:30 98.3 63 16 147/94 (111) 98 Room Air 98.3 EKG: EKG: [] Radiology/Procedures: Radiology/Procedures: [] Course & Med Decision Making: Course & Med Decision Making Pertinent Labs and Imaging studies reviewed. (See chart for details) [] Dragon Disclaimer: Dragon Disclaimer: This electronic medical record was generated, in whole or in part, using a voice recognition dictation system. Departure Departure Impression: Primary Impression: Chemical conjunctivitis of both eyes Disposition: HOME, SELF-CARE Condition: STABLE Referrals: YANI ESPINOZA MD (PCP) Patient Instructions: Conjunctivitis, Chemical Justicifation of Admission Dx: Justifications for Admission: Justification of Admission Dx: Comment: (Not applicable) SANDRINE ARCHER Jr. DO Mar 12, 2020 21:56
== END 2020-03-12 22:23 | disposition home or self-care (01) ==
LOC: ER 19:39
DX: T49.6X1A Poisoning by otorhinolaryngological drugs and preparations, accidental (unintentional), initial encounter (principal); H10.213 Acute toxic conjunctivitis, bilateral; E78.00 Pure hypercholesterolemia, unspecified; I10 Essential (primary) hypertension; E03.9 Hypothyroidism, unspecified; F39 Unspecified mood [affective] disorder; Z88.8 Allergy status to other drugs, medicaments and biological substances; Y92.89 Other specified places as the place of occurrence of the external cause
CPT/HCPCS: 99281